=== PATIENT | male | born 1970 | race Caucasian/White ===

== ENCOUNTER 2020-08-04 11:56 | Emergency (ER) | payer BC ==
[~2020-08-04] VITALS: Ht 177.8 cm; Wt 90.7 kg
[2020-08-04] MEDS ORDERED: SILVADENE,SSD C50 GM T (12:33)
[2020-08-04] MEDS ORDERED: IBUPROFEN600 MG PO (12:33)
[2020-08-04] MEDS ORDERED: NORCO 5-325 TA1 EACH PO (12:34)
== END 2020-08-04 12:46 | disposition home or self-care (01) ==
LOC: ED 11:56
DX: T23.101A Burn of first degree of right hand, unspecified site, initial encounter (principal); X10.2XXA Contact with fats and cooking oils, initial encounter; Y93.89 Activity, other specified; Y92.89 Other specified places as the place of occurrence of the external cause; Y99.8 Other external cause status

== ENCOUNTER 2020-08-06 21:01 | Emergency (ER) | payer BC ==
[~2020-08-06] VITALS: Ht 177.8 cm; Wt 90.7 kg
[~2020-08-06 21:01] MED LIST: IBUPROFEN600 MG PO; NORCO 5-325 TA1 EACH PO; SILVADENE,SSD C50 GM T
== END 2020-08-06 21:47 | disposition home or self-care (01) ==
LOC: ED 21:01
DX: T23.201D Burn of second degree of right hand, unspecified site, subsequent encounter (principal); T23.391D Burn of third degree of multiple sites of right wrist and hand, subsequent encounter; X08.8XXD Exposure to other specified smoke, fire and flames, subsequent encounter

== ENCOUNTER → 2020-08-08 | Outpatient (CLI) | payer BC | END | disposition home or self-care (01) | LOC: WOUNDCARE 00:32 | PROVIDERS: ATTEND Nurse Practitioner | DX: T23.261A Burn of second degree of back of right hand, initial encounter (principal); F17.210 Nicotine dependence, cigarettes, uncomplicated; X12.XXXA Contact with other hot fluids, initial encounter; Y93.89 Activity, other specified; Y92.89 Other specified places as the place of occurrence of the external cause; Y99.8 Other external cause status ==

== ENCOUNTER → 2020-08-15 | Outpatient (CLI) | payer BC | END | disposition home or self-care (01) | LOC: WOUNDCARE 08-12 09:56 | PROVIDERS: ATTEND Nurse Practitioner | DX: T23.261D Burn of second degree of back of right hand, subsequent encounter (principal); F17.210 Nicotine dependence, cigarettes, uncomplicated; X12.XXXD Contact with other hot fluids, subsequent encounter ==